=== PATIENT | female | born 1970 | race Caucasian/White ===

== ENCOUNTER 2016-08-04 15:52 | Outpatient (RCR) | payer OTHER | END 2016-08-05 | LOC: M PT 15:52 | PROVIDERS: ATTEND Orthopaedic Surgery | DX: Z51.89 Encounter for other specified aftercare (principal); Z96.642 Presence of left artificial hip joint ==

== ENCOUNTER → 2016-09-02 | Outpatient (RCR) | payer OTHER | LOC: M PT 08-06 15:34 | PROVIDERS: ATTEND Orthopaedic Surgery | DX: Z96.642 Presence of left artificial hip joint (principal) ==

== ENCOUNTER 2016-09-04 14:14 | Outpatient (RCR) | payer OTHER | END 2016-09-25 13:25 | disposition home or self-care (01) | LOC: M PT 14:14 | PROVIDERS: ATTEND Orthopaedic Surgery | DX: Z96.642 Presence of left artificial hip joint (principal) ==